=== PATIENT | female | born 1985 | race African-American/Black ===

== ENCOUNTER 2017-02-24 15:24 | Emergency (ER) | payer MEDICAID ==
[2017-02-24 15:37] VITALS: BP 105/74; PULSE 72; RESP 16; TEMP 97.3; O2SAT 100
[2017-02-24 15:43] LABS: COLOR YELLOW; LEUKOCYTE ESTERASE,URINE NEGATIVE (NEGATIVE); NITRITE,URINE NEGATIVE (NEGATIVE)
[2017-02-24] MEDS ORDERED: ONDANSETRON DISINTEGRATING 4 MG TAB PO ONE (16:01)
--- NOTE | 2017-02-24 18:11 | UCPHY ---
H & P Patient Type: Established Chief Complaint Nursing Narrative: nausea/LLQ abd pain since last night. pt also reports dizziness and generally "not feeling well". denies diarrhea, UTI s /s. Time Seen by Provider: 02/24/17 15:45 HPI/ROS: This patient is a who thinks she may be . She complains of some pain in her left lower quadrant since last night she describes as achy in nature with occasional sharp pains. She reports the intensity is mild-to- moderate with no clear exacerbating or alleviating factors. She also reports onset of nausea with 1 episode of vomiting since last night. She has a sense that she may be . She had a last menstrual. Just over 1 month ago. She arrives with her boyfriend. ROS: She reports mild subjective fevers associated with feeling of being easily cold. No other constitutional symptoms. HEENT: No URI symptoms pulmonary: Mild cough for 1 week occasionally productive of sputum. Cardiovascular: No heart palpitations or chest pain. No lower extremity swelling. GI: Currently no significant nausea. Mild left lower quadrant abdominal pain that does not radiate. : No urinary symptoms. No vaginal discharge. 10 point ROS is otherwise negative. Source: Patient Exam Limitations: No limitations - Personal History LMP (Females 10-55): 22-28 Days Ago Current Tetanus Diphtheria and Acellular Pertussis (TDAP): Yes - Medical/Surgical History Hx Asthma: No Hx Chronic Respiratory Disease: No Hx Diabetes: No Hx Cardiac Disease: No Hx Renal Disease: No Hx Cirrhosis: No Hx Alcoholism: No Hx HIV/AIDS: No Hx Splenectomy or Spleen Trauma: No Other PMH: none - Family History Significant Family History: No pertinent family hx - Social History Smoking Status: Current every day smoker Alcohol Use: Occasionally Drug Use: Cocaine Additional Social History: This patient admits IV cocaine drug use. Her last use was last night. - Physical Exam Exam: General Appearance: Alert, no distress. Eyes: Pupils equal and round no pallor or injection. ENT, Mouth: Mucous membranes moist. Respiratory: There are no retractions, lungs are clear to auscultation. Cardiovascular: Regular rate and rhythm. No murmur gallop rub. Gastrointestinal: Normoactive soft, minimal left lower quadrant tenderness with no guarding or rebound. Neurological: GCS 15 with no focal deficits. Skin: Warm and dry, no rashes. She has she remarks in her AC region with no surrounding erythema warmth or discharge. Musculoskeletal: Neck is supple nontender. Extremities are symmetrical, full range of motion. Psychiatric: Mood and affect are normal. DIFFERENTIAL DIAGNOSIS: After history and physical exam differential diagnosis was considered for constipation, ovarian cyst, , ectopic , UTI Constitutional: Initial Vital Signs Temperature (C) 36.3 C 02/24/17 15:34 Heart Rate 72 02/24/17 15:34 Respiratory Rate 16 02/24/17 15:34 Blood Pressure 105/74 02/24/17 15:34 O2 Sat (%) 100 02/24/17 15:34 O2 Delivery Mode Room Air Allergies/Adverse Reactions: No Known Allergies Allergy (Unverified 02/24/17 15:34) Home Medications: Medication Instructions Recorded Doxylamine/Pyridoxine HCl (B6) 1 each PO DAILY #0 tablet. 02/24/17 [Xu Paz 10-10 mg Tablet] Medical Decision Making - Diagnostics Imaging Results: Pelvic ultrasound reveals minimal fluid in the uterus that may represent very early per Dr. Sahu. No clear pole or other definitive findings. There is a small left ovarian finding that he he states is likely a corpus luteum cyst half a cm in size but cannot entirely exclude ectopic . No free fluid. No other abnormal findings ED Course/Re-evaluation: Studies: Patient's urine is positive. Her urinalysis is normal. I counseled regarding her positive test and the need for further workup to rule out ectopic An attempt was made to obtain an IV for this patient which failed due to difficult veins. She declined subsequent attempts despite my explanation of the urgency to obtain quant hCG, CBC to help track this early and to facilitate with rule out ectopic in follow-up. The patient left without receiving her discharge paperwork rather than proceeding with IV blood work. I discussed the case with our on-call OBGYN physician, Dr. Sutton. Our nurse also called the patient in reach her by phone explaining that he had a prescription for likely just for her nausea vomiting that she should come to the clinic to turkey picker an urged close follow up with Dr. Sutton-OBPAMELA. Discussion: Although this patient appears very stable with very minimal belly findings and likely has IUP. Cannot rule out ectopic at this time. I am Concerned about her IV drug abuse and potential of lost to follow-up. I counseled her regarding potential health risks with IV drug use including endocarditis sepsis , loss of her , cardiac arrest from the cocaine etc. - Data Points Medications Given: Discontinued Medications Ondansetron HCl (Zofran Odt) 4 mg PO EDNOW ONE Stop: 02/24/17 16:02 Last Admin: 02/24/17 16:36 Dose: Not Given Departure - Departure Disposition: Home, Routine, Self-Care Clinical Impression: First trimester , Pelvic pain, IVDA Condition: Good Instructions: (ED), Acute Nausea and Vomiting (ED) Additional Instructions: Diagnosis: 1st trimester 2. Vomiting 3. Pelvic pain Based on today studies, we cannot rule out an ectopic -a that is located in the over instead of the uterus. Plan: You declined blood work today. Stop using all recreational drugs. Tylenol if needed for discomfort. Start dye clean just for nausea as needed Follow up this week with the OBGYN physician listed below for further evaluation. Good the emergency department any significant increase in pain. Referrals: Stella Sutton MD [Medical Doctor] - As per Instructions Prescriptions: Doxylamine/Pyridoxine HCl (B6) [Xu Paz 10-10 mg Tablet] 1 each PO DAILY #0 tablet. - PQRS PQRS Measurement: NA
== END 2017-02-24 18:21 | disposition home or self-care (01) ==
LOC: CED 15:24
DX: O99.321 Drug use complicating pregnancy, first trimester (principal); O99.331 Smoking (tobacco) complicating pregnancy, first trimester; Z3A.01 Less than 8 weeks gestation of pregnancy
CPT/HCPCS: 81003-PO; 81025-PO; 99214-PO; G0463-PO

== ENCOUNTER 2017-06-11 16:29 | Emergency (ER) | payer MEDICAID ==
[2017-06-11 16:52] VITALS: O2SAT 100
[2017-06-11] MEDS ORDERED: NS 1,000 ML IV ONE (16:58)
[2017-06-11 17:41] LABS: % IMMATURE GRANULYOCYTES 0.4 % (0.0-1.1); ABSOLUTE IMMATURE GRANULOCYTES 0.04 10^3/uL (0.00-0.10); ADD DIFF? NO; ADD MORPH? NO; ADD SCAN? NO; ATYPICAL LYMPHOCYTE FLAG 0 (0-99); FRAGMENT RBC FLAG 0 (0-99); HEMATOCRIT 32.8 % (38.0-47.0); LEFT SHIFT FLG 0 (0-99); LIPEMIA HEMOLYSIS FLAG 80 (0-99); MEAN CELL HEMOGLOBIN 30.4 pg (27.9-34.1); MEAN CELL HEMOGLOBIN CONCENTR. 33.5 g/dL (32.4-36.7); MEAN CELL VOLUME 90.6 fL (81.5-99.8); MEAN PLATELET VOLUME 11.2 fL (8.7-11.7); PLATELET CLUMPS FLAG 10 (0-99); PLATELET COUNT 208 10^3/uL (150-400); RED BLOOD CELL COUNT 3.62 10^6/uL (4.18-5.33); RED CELL DISTRIBUTION WIDTH 13.2 % (11.5-15.2)
[2017-06-11 17:56] LABS: COLOR YELLOW; LEUKOCYTE ESTERASE,URINE NEGATIVE (NEGATIVE); NITRITE,URINE NEGATIVE (NEGATIVE)
--- NOTE | 2017-06-11 18:10 | EDPHY ---
H & P Stated Complaint: vaginal bleeding 21 weeks Time Seen by Provider: 06/11/17 16:58 HPI/ROS: This patient with history of 1 tab this 21 weeks and complains of vaginal bleeding. She explains that at 7:00 a.m. this morning she had a moderate amount of vaginal bleeding she estimates enough to soak a pad that then stopped. She had no further vaginal bleeding thereafter. She did notice any antecedent significant vaginal discharge or other symptoms prior to this. She is concerned about the viability of her 21 week and wants to keep it. She did have an ultrasound 1 month ago in the [facility] for hyperemesis but does not know with findings of that study showed. She has had no other care so far. ROS: No fevers or chills. No other constitutional symptoms. HEENT: No complaints Pulmonary: No cough shortness of breath GI: No abdominal pain. No vomiting. No nausea : No pelvic pain. No pelvic trauma. Integumentary: No skin rash Neuro: No complaints 10 point ROS is otherwise negative Source: Patient Exam Limitations: No limitations - Personal History LMP (Females 10-55): Over 28 Days Ago EDC: 02/02/17 Current Tetanus/Diphtheria Vaccine: Yes Current Tetanus Diphtheria and Acellular Pertussis (TDAP): Yes - Medical/Surgical History Hx Asthma: No Hx Chronic Respiratory Disease: No Hx Diabetes: No Hx Cardiac Disease: No Hx Renal Disease: No Hx Cirrhosis: No Hx Alcoholism: No Hx HIV/AIDS: No Hx Splenectomy or Spleen Trauma: No Other PMH: none - Family History Significant Family History: No pertinent family hx - Social History Smoking Status: Current every day smoker Alcohol Use: None Drug Use: None Additional Social History: She works a [employer] in [place] - Physical Exam Exam: General Appearance: Pleasant black female Alert, no distress. Eyes: Pupils equal and round no pallor or injection. ENT, Mouth: Mucous membranes moist. Respiratory: There are no retractions, lungs are clear to auscultation. Cardiovascular: Regular rate and rhythm. Gastrointestinal: Abdomen is soft and nontender, bowel sounds normal, uterus is at the umbilicus consistent with dates and nontender Neurological: GCS 15 with no focal deficits Back: No CVA tenderness Pelvic exam: Cervical os is closed. There is minimal erythema to the cervix but not a "strawberry" cervix there is moderate amount of white discharge that is sent for GC, Chlamydia, vaginal culture and Gardnerella Skin: Warm and dry, no rashes. Musculoskeletal: Neck is supple nontender. Extremities are symmetrical, full range of motion. Psychiatric: Mood and affect normal DIFFERENTIAL DIAGNOSIS: After history and physical exam differential diagnosis was considered for threatened miscarriage, bacterial vaginosis, vaginal yeast infection, STD, UTI Constitutional: Initial Vital Signs Temperature (C) 36.7 C 06/11/17 16:48 Heart Rate 88 06/11/17 16:48 Respiratory Rate 20 06/11/17 16:48 Blood Pressure 115/67 06/11/17 16:48 O2 Sat (%) 100 06/11/17 16:48 O2 Delivery Mode Room Air Allergies/Adverse Reactions: No Known Allergies Allergy (Verified 06/11/17 16:43) Home Medications: Medication Instructions Recorded Doxylamine/Pyridoxine HCl (B6) 1 each PO DAILY #0 tablet. 02/24/17 [Xu Paz 10-10 mg Tablet] Medical Decision Making - Diagnostics Imaging Results: Ob ultrasound reveals 21 week viable intrauterine -heart rate 134. Cervical length is on the shorter side at 2.6 cm (normal greater than 3 mm) no other concerning findings per Dr. Bush-radiologist. Imaging: Discussed imaging studies w/ scallop binder Radiologist ED Course/Re-evaluation: Patient remained stable without further complaints. I counseled regarding the importance of quitting smoking encouraged her to quit smoking. I spoke with Dr. Stella Sutton-OBPAMELA on-call who recommends pelvic rest for this patient. She warrants follow-up in 2 weeks to recheck the cervical length. Her arrive part way through her stay I counseled the 2 them regarding the ultrasound results the plan to follow up with Dr. Sutton. Discussion: Threatened miscarriage with viable 21 week -short cervix but no other concerning findings although she did seem to have more vaginal discharge than typical. This is sent for B.V. other studies that are pending - (reviewed and negative.) We ruled out UTI. Her HCG levels appropriate for this time . Her CBC is also normal for this time . Patient is uncertain of her Rh type. Rh factor is pending (reviewed - Rh +). - Data Points Laboratory Results: Laboratory Results 06/11/17 17:33 Microbiology Results: MICROBIOLOGY 06/11/17 18:05 Vaginal - Swab Gram Stain - Final 06/11/17 18:05 Vaginal - Swab Vaginal Culture - Preliminary Medications Given: Discontinued Medications Sodium Chloride (Ns) 1,000 mls @ 0 mls/hr IV EDNOW ONE; Wide Open PRN Reason: Protocol Stop: 06/11/17 16:59 Last Admin: 06/11/17 17:20 Dose: 1,000 mls Departure - Departure Disposition: Home, Routine, Self-Care Clinical Impression: Threatened miscarriage Condition: Good Instructions: Threatened Miscarriage (ED), How to Stop Smoking (ED) Additional Instructions: Diagnosis: Threatened miscarriage (vaginal bleeding while ) Your ultrasound shows a viable 21 week fetus with a normal heart rate. The length of your cervix is a bit short-likely from having multiple previous pregnancies. Otherwise no abnormalities are noted. Plan: Pelvic rest-no sex until follow up with OBGYN. No vigorous activity Call Dr. Sutton-phone number listed below to arrange follow-up appointment. Drink plenty fluids Quit smoking Return to the emergency department for any significant recurrence of bleeding or other concerns. Referrals: NONE *PRIMARY CARE P,. [Primary Care Provider] - As per Instructions Stella Sutton MD [Medical Doctor] - As per Instructions
[2017-06-11 19:35] VITALS: BP 122/68; PULSE 82; RESP 20; TEMP 98.6
[2017-06-12 11:56] LABS: CHLAMYDIA AMPLIFICATION GENPRB NEGATIVE (NEGATIVE)
== END 2017-06-11 19:57 | disposition home or self-care (01) ==
LOC: CED 16:29
DX: O20.0 Threatened abortion (principal); F17.200 Nicotine dependence, unspecified, uncomplicated; E86.9 Volume depletion, unspecified; Z3A.21 21 weeks gestation of pregnancy
CPT/HCPCS: 76805-PO; 81003-PO; 84702-PO; 85025-PO

== ENCOUNTER → 2017-07-21 | Outpatient (CLI) | payer MEDICAID | LOC: FIMAGING 13:03 | PROVIDERS: ATTEND Obstetrics & Gynecology | DX: Z34.83 Encounter for supervision of other normal pregnancy, third trimester (principal); Z3A.27 27 weeks gestation of pregnancy ==